=== PATIENT | female | born 1955 | race Caucasian/White ===

== ENCOUNTER 2018-01-12 17:59 | Emergency (ER) | payer SELFPAY ==
[2018-01-12 18:42] VITALS: BP 149/85
--- NOTE | 2018-01-12 19:04 | UC ---
Complaint Female HPI - HPI Summary HPI Summary: The patient is a 62 y/o F presenting to [facility] with a chief complaint of dysuria and increased urinary frequency and urgency starting 3 days ago. She states that these symptoms are similar to when she gets urinary infections. The burning pain is rated 2/10 in severity. She additionally c/o fevers. She denies chills, nausea, vomiting, and back pain. - History Of Current Complaint Chief Complaint: UCGU Stated Complaint: BURNING URINATION Time Seen by Provider: 01/12/18 18:20 Hx Obtained From: Patient Onset/Duration: Sudden Onset, Lasting Days - three, Still Present Timing: Lasting Days Severity Initially: Mild Severity Currently: Mild Pain Intensity: 2 Pain Scale Used: 0-10 Numeric Character: Burning Aggravating Factor(s): Urination Alleviating Factor(s): Nothing Associated Signs And Symptoms: Positive: Negative - chills, back pain, Fever. Negative: Back Pain, Nausea, Vomiting(# Of Episodes =) - Allergies/Home Medications Allergies/Adverse Reactions: Allergies Allergy/AdvReac Type Severity Reaction Status Date / Time bacitracin Allergy Rash Verified 01/12/18 18:43 [From Neosporin ([id number])] neomycin Allergy Rash Verified 01/12/18 18:43 [From Neosporin ([id number])] nickel Allergy Rash Verified 01/12/18 18:43 Penicillins Allergy Rash Verified 01/12/18 18:43 polymyxin B Allergy Rash Verified 01/12/18 18:43 [From Neosporin ([id number])] GOLD Allergy Rash Uncoded 01/12/18 18:43 Home Medications: Home Medications Fluticasone Propionate [Flonase Allergy Relief] 01/12/18 [History] Levothyroxine TAB* [Synthroid TAB*] 50 mcg PO DAILY 01/12/18 [History Confirmed 01/12/18] PMH/Surg Hx/FS Hx/Imm Hx Endocrine History: Hypothyroidism, Other Other Endocrine History: NEGATIVE: diabetes Cardiovascular History: Hypertension - Surgical History Surgical History: Yes Surgery Procedure, Year, and Place: d&c, mole removals - Family History Known Family History: Positive: Diabetes, Other - CVA - Social History Alcohol Use: Weekly Alcohol Amount: glass with dinner Substance Use Type: None Smoking Status (MU): Never Smoked Tobacco - Immunization History Most Recent Influenza Vaccination: season Review of Systems Constitutional: Fever, Other - NEGATIVE: chills Gastrointestinal: Other - NEGATIVE: nausea, vomiting Genitourinary: Dysuria, Frequency - increased, Urgency - increased Musculoskeletal: Other: - NEGATIVE: back pain All Other Systems Reviewed And Are Negative: Yes Physical Exam - Summary Physical Exam Summary: VITAL SIGNS: Reviewed. GENERAL: Patient is a well-developed and nourished female who is lying comfortable in the stretcher. Patient is not in any acute respiratory distress. HEAD AND FACE: Normocephalic EYES: PERRLA, EOMI x 2. EARS: Hearing grossly intact. MOUTH: Oropharynx within normal limits. NECK: Supple, trachea is midline, no adenopathy, no JVD, no carotid bruit. CHEST: Symmetric, no tenderness at palpation LUNGS: Clear to auscultation bilaterally. No wheezing or crackles. CVS: Regular rate and rhythm, S1 and S2 present, no murmurs or gallops appreciated. ABDOMEN: Soft, non-tender. Bowel sounds are normal. No abdominal abnormal pulsations. EXTREMITIES: Full ROM in all major joints, no edema, no cyanosis or clubbing. NEURO: Alert and oriented x 3. No acute neurological deficits. Speech is normal and follows commands. SKIN: Dry and warm Triage Information Reviewed: Yes Vital Signs: Initial Vital Signs Temp 97.9 F 01/12/18 18:37 Pulse 63 01/12/18 18:37 Resp 16 01/12/18 18:37 BP 149/85 01/12/18 18:37 Pulse Ox 97 01/12/18 18:37 Vital Signs Reviewed: Yes Complaint Female Dx - Course Course Of Treatment: Patient is a 62-year-old female with a chief complaint of dysuria, urinary frequency and urgency. Urinalysis with positive leukocytes. Patient given a prescription for ciprofloxacin. She was instructed to return to the urgent care or go to the ER if the patient develops any fever, nausea, vomiting, back pain, or dizziness. She understands and agrees. She is hemodynamically stable alert oriented 3. - Differential Dx/Diagnosis Provider Diagnoses: Acute UTI Discharge - Sign-Out/Discharge Documenting (check all that apply): Patient Departure - Patient will be discharged home. All imaging exams completed and their final reports reviewed: No Studies - Discharge Plan Condition: Stable Disposition: HOME Prescriptions: Ciprofloxacin TAB* [Cipro 500 MG TAB*] 500 mg PO BID #6 tab Patient Education Materials: Urinary Tract Infection in Women (DC) Referrals: Daja Guallpa MD [Primary Care Provider] - Additional Instructions: Take medications as instructed and adhere to plan Take Acetaminophen or ibuprofen for pain or fever Increase your fluid intake Return to the UC or go to the emergency department if symptoms worsen Follow-up with primary care physician in next 2-3 days - Billing Disposition and Condition Condition: STABLE Disposition: Home - Attestation Statements Document Initiated by Sera: Yes Documenting Scribe: Sena Benites Provider For Whom Sera is Documenting (Include Credential): Dr. Gino Nicholson MD Scribe Attestation: Sena Marlow scribed for Dr. Gino Nicholson MD on 01/12/18 at 2103. Scribe Documentation Reviewed: Yes Provider Attestation: The documentation as recorded by the Sena mooney accurately reflects the service I personally performed and the decisions made by me, Dr. Gino Nicholson MD
--- NOTE | 2018-01-15 17:13 | UC ---
- Progress Note Progress Note: 01/15/2018 Urine culture positive for Klebsiella pneumonia Pt Rx Ciprofloxacin PO which covers for it Urine sensitivity positive for ciprofloxacin PO. No change. Marlen Almonte PA-C Discharge - Sign-Out/Discharge Documenting (check all that apply): Patient Departure - D/c home All imaging exams completed and their final reports reviewed: No Studies - Discharge Plan Condition: Stable Disposition: HOME Prescriptions: Ciprofloxacin TAB* [Cipro 500 MG TAB*] 500 mg PO BID #6 tab Patient Education Materials: Urinary Tract Infection in Women (DC) Referrals: Daja Guallpa MD [Primary Care Provider] - Additional Instructions: Take medications as instructed and adhere to plan Take Acetaminophen or ibuprofen for pain or fever Increase your fluid intake Return to the or go to the emergency department if symptoms worsen Follow-up with primary care physician in next 2-3 days - Billing Disposition and Condition Condition: STABLE Disposition: Home
== END 2018-01-12 19:30 | disposition home or self-care (01) ==
LOC: UCEAST 17:59
DX: N39.0 Urinary tract infection, site not specified (principal); R50.9 Fever, unspecified; E03.9 Hypothyroidism, unspecified; Z88.3 Allergy status to other anti-infective agents; Z88.0 Allergy status to penicillin
CPT/HCPCS: 81003; 87077; 87086; 87186; 99212; G0463